=== PATIENT | female | born 1960 | race Caucasian/White ===

== ENCOUNTER 2021-03-14 18:04 | Emergency (ER) | payer OTHER, SELFPAY ==
[2021-03-14 18:05] VITALS: BP 137/80; PULSE 84; RESP 18; TEMP 36.8; O2SAT 98; BMI 44.9
--- NOTE | 2021-03-14 19:23 | HMH.EDGENADL ---
ED Disposition Referrals: Hardik Chapman MD [Primary Care Provider] - Attestation: On 03/14/21, the high probability of a clinically significant, sudden or life threatening deterioration of the following system(s) required my full and direct attention, intervention and personal management. The time I documented below is in addition to time spent performing reported procedures but includes the following listed in this critical care notation. General Adult HPI - General Stated complaint: Throbbing, burning pain in R leg Time Seen by Provider: 03/14/21 19:23 - Related Data Allergies Allergy/AdvReac Type Severity Reaction Status Date / Time Tetanus Toxoid Allergy Unknown Uncoded 04/08/17 14:22 [facility] History - Hepatitis A Screen Attestation statement:: This patient has been screened for Hepatitis A risk factors.
[2021-03-14 20:05] LABS: Basophils # 0.1 K/mm3 (0-0.2); Basophils % 1.1 % (0.1-2.0); Eosinophils # 0.1 K/mm3 (0.0-0.4); Eosinophils % 0.9 % (0.1-12.0); Hematocrit 46.6 % (37.0-47.0); Hemoglobin 15.7 g/dL (12.2-16.2); Lymphocytes % 32.8 % (10-50); Mean Corpuscular HGB Conc 33.7 g/dL (31.8-35.4); Mean Corpuscular Hemoglobin 31.3 pg (27.0-31.2); Mean Corpuscular Volume 92.9 fl (81-99); Mean Platelet Volume 7.5 fl (7.4-10.4); Monocytes # 0.3 K/mm3 (0.1-1.0); Monocytes % 4.3 % (1.7-9.3); Neutrophils # 3.7 K/mm3 (1.8-7.8); Neutrophils % 60.9 % (37.0-80.0); Platelet Count 337 K/mm3 (142-424); Red Blood Count 5.01 M/mm3 (4.20-5.40); Red Cell Distribution Width 13.7 % (11.5-17.5); White Blood Count 6.1 K/mm3 (4.8-10.8)
--- NOTE | 2021-03-14 20:09 | HMH.EDLOEX ---
ED Disposition Clinical Impression: Elevated d-dimer Lower extremity pain Qualifiers: Laterality: right Qualified Code(s): M79.604 - Pain in right leg Disposition: Home, Self-Care Condition on Discharge: Good Instructions: DI for Acute Pain -- Adult Additional Instructions: call pcp for follow up Referrals: Hardik Chapman MD [Primary Care Provider] - - Critical Care Critical Care Time: No Attestation: On 03/14/21, the high probability of a clinically significant, sudden or life threatening deterioration of the following system(s) required my full and direct attention, intervention and personal management. The time I documented below is in addition to time spent performing reported procedures but includes the following listed in this critical care notation. Medical Decision Making - Medical Records Medical records reviewed: Yes: I reviewed the patient's medical records. - Elliott Inquiry Pt receiving controlled substance: No Vital Signs: 03/14/21 18:05 Temperature 98.2 F Temperature Source Oral Pulse Rate [Right Radial] 84 Respiratory Rate 18 Blood Pressure [Right Arm] 137/80 Blood Pressure Mean [Right Arm] 99 Blood Pressure Source [Right Arm] Automatic Cuff Blood Pressure Position [Right Arm] Sitting 02 Sat by Pulse Oximetry 98 Oxygen Delivery Method Room Air - Lab Data Lab results reviewed: Yes: I reviewed the patient's lab results. Lab Results 03/14/21 19:56: WBC 6.1, RBC 5.01, Hgb 15.7, Hct 46.6, MCV 92.9, MCH 31.3 H, MCHC 33.7, RDW 13.7, Plt Count 337, MPV 7.5, Neut % (Auto) 60.9, Lymph % (Auto) 32.8, [place] % (Auto) 4.3, Eos % (Auto) 0.9, Baso % (Auto) 1.1, Neut # (Auto) 3.7, Lymph # (Auto) 2.0, [place] # (Auto) 0.3, Eos # (Auto) 0.1, Baso # (Auto) 0.1, ESR 19 03/14/21 19:56: Sodium 141, Potassium 3.9, Chloride 104, Carbon Dioxide 30, Anion Gap 10.9, BUN 14, Creatinine 0.80, Estimated Creat Clear 53, Estimated GFR 73, Est GFR ( Amer) 88, Glucose 107 H, Calcium 9.5, Total Bilirubin 0.6, AST 37 H, ALT 25, Alkaline Phosphatase 55, C-Reactive Protein 21.7 H, Total Protein 8.1, Albumin 4.6, Globulin 3.5 H, Albumin/Globulin Ratio 1.3 03/14/21 19:56: Procalcitonin 0.357 03/14/21 19:56: D-Dimer 0.72 H Result diagrams: 03/14/21 19:56 03/14/21 19:56 Orders (Tests/Meds): ED MEDICATIONS Generic Name Dose Route Start Last Admin Trade Name Freq PRN Reason Stop Dose Admin Enoxaparin Sodium 120 mg 03/14/21 21:15 03/14/21 21:05 Enoxaparin 100mg/Ml Syringe 1 mg/kg (120 mg) 04/13/21 21:14 120 mg SQ Administration Q12H OFELIA Discontinued Medications Generic Name Dose Route Start Last Admin Trade Name Freq PRN Reason Stop Dose Admin Ketorolac Tromethamine 30 mg 03/14/21 21:00 03/14/21 21:04 Ketorolac 30mg/Ml Vial IV 03/14/21 21:01 30 mg ONCE ONE Administration Methylprednisolone Sodium Succinate 125 mg 03/14/21 21:00 03/14/21 21:04 Methylprednisolone Sod Succ 125mg Vial IV 03/14/21 21:01 125 mg ONCE ONE Administration ORDERS Category Date Time Status XR knee RT 3V Stat Exams 03/14/21 20:28 Taken XR tibia fibula RT 2V Stat Exams 03/14/21 20:28 Taken - Radiology Data #1 Image(s): Knee, Tib/Fib Image Reviewed: Yes I have reviewed radiologist's interpretation Preliminary Findings: No Fracture Seen Medical Decision Narrative: has atraumatic pain which may represent dvt and will cover with lovenox and possible inflammatory in nature and ask pt to call pcp for follow up Lower Extremity Injury HPI - General Chief Complaint: PAIN Stated Complaint: Throbbing, burning pain in R leg Time Seen by Provider: 03/14/21 19:23 Mode of Arrival: Wheelchair Source of Information: Patient, Medical Record Limitations: No Limitations Description of Symptoms (Recalled from ER Triage Doc. by RN): Pt reports RLE pain for approx 1 week. Pt states no injury to RLE, RLE is tender to the touch. Pt reports intermittent throbbing and stabbing pain. Pt repor
[2021-03-14 20:12] LABS: Alanine Aminotransferase 25 U/L (12-78); Albumin Level 4.6 g/dl (3.5-5.0); Albumin/Globulin Ratio 1.3 (1.1-1.8); Alkaline Phosphatase 55 U/L (38-126); Anion Gap 10.9 mEq/L (5-15); Aspartate Amino Transferase 37 U/L (14-36); Bilirubin,Total 0.6 mg/dl (0.2-1.3); Blood Urea Nitrogen 14 mg/dl (7-17); Calcium 9.5 mg/dl (8.4-10.2); Carbon Dioxide 30 mmol/L (22.0-30.0); Chloride 104 mmol/L (98-107); Creatinine Clearance Estimated 53 mL/min (50-200); Estimated Glomerular Filt Rate 73 ml/min (>60); GFR (African American) 88 ML/MIN (>60); Globulin 3.5 g/dL (1.3-3.2); Glucose 107 mg/dl (74-100); Potassium 3.9 mmoL/L (3.5-5.1); Sodium 141 mmol/L (136-145); Total Protein,Serum 8.1 g/dl (6.3-8.2)
[2021-03-14 20:18] LABS: C-Reactive Protein 21.7 mg/L (0-4)
--- NOTE | 2021-03-14 20:28 | XR_ITS ---
PROCEDURE INFORMATION: Exam: XR Right Tibia and Fibula Exam date and time: 03/14/2021 8:28 PM Age: 60 years old Clinical indication: Patient HX: Right lower leg pain for 2 weeks, no known injury. ; Additional info: Leg pain, no injury TECHNIQUE: Imaging protocol: XR Right tibia and fibula. Views: 2 views. COMPARISON: CR XR KNEE RT 3V 03/14/2021 8:29 PM FINDINGS: Bones/joints: Normal. Soft tissues: Normal. IMPRESSION: No acute findings.
--- NOTE | 2021-03-14 20:28 | XR_ITS ---
PROCEDURE INFORMATION: Exam: XR Right Knee Exam date and time: 03/14/2021 8:28 PM Age: 60 years old Clinical indication: Patient HX: Right knee pain for 2 weeks, no known injury. ; Additional info: Pain, no trauma TECHNIQUE: Imaging protocol: XR Right knee. Views: 4 or more views. COMPARISON: No relevant prior studies available. FINDINGS: Bones/joints: Patellofemoral joint compartment narrowing. Osteophyte formation. No acute fracture or dislocation. Soft tissues: Normal. IMPRESSION: No acute findings.
[2021-03-14 20:31] LABS: Procalcitonin 0.357 ng/mL (0.0-2.0)
[2021-03-14 20:34] LABS: D-Dimer 0.72 ug/mL (0.0-0.5)
[2021-03-14 20:41] LABS: Erythrocyte Sedimentation Rate 19 mm/hr (0-30)
--- NOTE | 2021-03-14 20:47 | PC.NURSE ---
pt back from xr
[2021-03-14 21:47] VITALS: BP 129/80; PULSE 86; RESP 20; TEMP 36.9; O2SAT 97
== END 2021-03-14 21:55 | disposition home or self-care (01) ==
PROVIDERS: Emergency Medicine; Emergency Provider Emergency Medicine; PCP Family Medicine
DX: M79.604 Pain in right leg (principal)
CPT/HCPCS: 73562; 73590; 80053; 84145; 85025; 85378; 85651; 86140; 96365; 99283

== ENCOUNTER → 2021-03-15 11:01 | Outpatient (CLI) | payer OTHER, SELFPAY ==
--- NOTE | 2021-03-15 | CA_ITS ---
APPROVED REPORT Right Lower Extremity Venous Study for DVT. Photographic Equipment Technician: EDIE Indications Lower Extremity Pain: Right Patient states her leg has been hurting for some time but worse in the last 3 weeks. She denies trauma. States she is unable to bear any weight on the right leg. Pain in the right lateral and posterior knee radiating down lateral aspect of the right calf. Morbid obesity (270+ lbs). Risk Factors Immobility Obesity Vein Imaging CFV (R): compressive, spontaneous, phasic, augmentation FEM (R): compressive, spontaneous, phasic, augmentation POP (R): compressive, spontaneous, phasic, augmentation PTV (R): Compressible GSV (R): Compressible Peroneals (R):Not Visualized GAS (R): Compressible Findings No evidence of DVT or superficial thrombophlebitis in the veins scanned of the right lower extremity. Conclusion No evidence of DVT or superficial thrombophlebitis in the veins scanned of the right lower extremity. Electronically signed by : Herman Porter MD 03/16/2021 08:34:50
== END ==
PROVIDERS: PCP Emergency Medicine; Visit Provider Emergency Medicine
DX: M79.661 Pain in right lower leg (principal)
CPT/HCPCS: 93971

== ENCOUNTER 2022-04-21 07:59 | Emergency (ER) | payer OTHER, SELFPAY ==
[2022-04-21 08:05] VITALS: BP 130/87; PULSE 87; RESP 18; TEMP 36.9; O2SAT 95; BMI 43.2
--- NOTE | 2022-04-21 08:28 | EXP.UTC ---
Discharge Plan Disposition Patient Disposition: Home, Self-Care Condition: Good Prescriptions Prescriptions: New azithromycin [Zithromax] 250 mg tablet 250 mg PO UD DOSE PK Qty: 6 0RF Rx Instructions: Take two (2) tablets today, then one (1) tablet days #2 thru #5 benzonatate [benzonatate] 100 mg capsule 100 mg PO TIDP PRN (Reason: Cough) Qty: 30 0RF methylprednisolone 4 mg Tablets,Dose Pack 4 mg PO DIRECTED Qty: 21 0RF Paxlovid (EUA) 300 mg (150 mg x 2)-100 mg tablet See Rx Instructions .ROUTE .COMPLEX Qty: 30 0RF Rx Instructions: take TWO 150 mg tablets of nirmatrelvir with ONE 100 mg tablet of ritonavir twice daily for 5 days Referrals Follow up/Referrals: Ismael Canchola MD [Primary Care Provider] - See instructions Activity Restrictions/Add. Instructions Additional Instructions/Restrictions: Drink plenty of fluids. Take tylenol or ibuprofen for pain or fever. Take the medications as directed. Follow up with your regular doctor. GO TO THE ER FOR ANY WORSENING SYMPTOMS Clinical Impressions Clinical Impression: COVID-19 Instructions Patient Instructions: Coronavirus Disease 2019, Preventing the Spread of Coronavirus Discharge Instructions Discharge ED Provider: Asad Blackmon [facility] General Stated complaint: Congestion,headache,Covid + @ home Mode of Arrival: Ambulatory Source of Information: Patient Limitations: No Limitations Time Seen by Provider: 04/21/22 08:27 Description of Symptoms (Recalled from Triage Doc. by RN): PATIENT C/O HEADACHE, CHILLS, COUGH, AND NO TASTE. REPORTS A POSITIVE AT HOME COVID TEST YESTERDAY HEENT Symptoms (Recalled from RN notes): Yes Resp Symptoms (Recalled from RN notes): Yes Skin Symptoms (Recalled from RN notes): No MS Symptoms (Recalled from RN notes): No Functional Status (Recalled from RN notes): WNL History of Present Illness Provider Complaint: She states that she has had fever, chills, body aches, productive cough and malaise for the past 2 days. Related Data Previous Rx's Medication Instructions Recorded azithromycin 250 mg tablet 250 mg PO UD DOSE PK #6 tabs 04/21/22 (Zithromax) benzonatate 100 mg capsule 100 mg PO TIDP PRN Cough #30 caps 04/21/22 methylprednisolone 4 mg tablets in 4 mg PO DIRECTED #21 tabs 04/21/22 a dose pack nirmatrelvir 300 mg (150 mg See Rx Instructions PO .COMPLEX 04/21/22 x2)-ritonavir 100 mg tablet,dose #30 tabs pack(EUA) (Paxlovid) Allergies Allergy/AdvReac Type Severity Reaction Status Date / Time Tetanus Vaccines and Toxoid Allergy Verified 04/21/22 08:23 Worker's Comp Is this a Worker's Comp case?: No [facility] Disclaimer: The information contained in this section may have been updated after the patient was seen, as this information can be updated by other users. Medical History No significant past medical history Social History Smoking Status: Unknown if ever smoked alcohol intake: never current occupational status: other Travel in the last 8 weeks: None ROS Obtained: Yes All systems reviewed & no additional complaints except as documented Constitutional Constitutional: Reports chills and Reports fever(s) Eyes Eyes: Denies eye discharge ENT Ears, Nose, Mouth, and Throat: Reports as per HPI Cardiovascular Cardiovascular: Denies chest pain Respiratory Respiratory: Denies chest congestion and Reports cough Gastrointestinal Gastrointestingal: Reports nausea; Denies abdominal pain, constipation, cramping, diarrhea or vomiting Musculoskeletal Musculoskeletal: Denies arthralgias Integumentary/Breasts Skin/Breast: Denies rash Neurologic Neurologic: Denies paresthesias Physical Exam General General appearance: alert and in no apparent distress Head Head exam: atraumatic, normocephalic and normal inspection Eye Eye exam: Present normal appeara
[2022-04-21 08:35] VITALS: BP 130/87; PULSE 87; RESP 18; TEMP 36.9; O2SAT 95
== END 2022-04-21 08:49 | disposition home or self-care (01) ==
PROVIDERS: Emergency Provider Nurse Practitioner Family; PCP Family Medicine
DX: R51.9 Headache, unspecified (principal); R50.9 Fever, unspecified; R05.9 Cough, unspecified; U07.1 COVID-19
CPT/HCPCS: 99212; G0463

== ENCOUNTER → 2022-06-11 08:53 | Outpatient (CLI) | payer OTHER, SELFPAY ==
--- NOTE | 2022-06-11 08:59 | XR_ITS ---
FINAL REPORT TECHNIQUE: Chest PA & Lateral CLINICAL HISTORY: CHEST PAIN, HAD COVID IN APR FINDINGS: 2 views of the chest were performed. The heart size is normal. The mediastinum is within normal limits. There is no acute cardiopulmonary process. There are no pleural effusions. There is no pneumothorax. The bony thorax appears intact. IMPRESSION: No acute cardiopulmonary process. Reviewed, Interpreted and Dictated by Shaji Griffin III, MD Transcribed by Davi Mayberry Authenticated and [facility] [place]
== END ==
PROVIDERS: PCP Family Medicine; Visit Provider Family Medicine
DX: R07.9 Chest pain, unspecified (principal)
CPT/HCPCS: 71046

== ENCOUNTER → 2022-06-25 09:33 | Outpatient (CLI) | payer OTHER, SELFPAY ==
--- NOTE | 2022-06-25 09:46 | XR_ITS ---
FINAL REPORT CLINICAL HISTORY: LT LOWER LEG PAIN FINDINGS: Left knee Two views were obtained. There is no acute fracture or dislocation. There are mild and moderate degenerative changes. There is medial compartment narrowing. There are presumed subchondral cysts in the medial tibial plateau. Small joint effusion is identified. IMPRESSION: Degenerative changes and small joint effusion. Reviewed, Interpreted and Dictated by Shaji Griffin III, MD Transcribed by Kusum West Authenticated and [facility]
--- NOTE | 2022-06-25 09:46 | XR_ITS ---
FINAL REPORT CLINICAL HISTORY: RT LOWER LEG PAIN COMPARISON: 03/14/2019 FINDINGS: Right knee Two views were obtained. There is no acute fracture or dislocation. There are mild degenerative changes, stable from previous. No soft tissue abnormality is identified. IMPRESSION: Mild degenerative changes, stable. Reviewed, Interpreted and Dictated by Shaji Griffin III, MD Transcribed by Kusum West Authenticated and [facility]
== END ==
PROVIDERS: PCP Family Medicine; Visit Provider Family Medicine
DX: M25.562 Pain in left knee (principal); M25.561 Pain in right knee; M79.662 Pain in left lower leg; M79.661 Pain in right lower leg
CPT/HCPCS: 73560